=== PATIENT | male | born 1980 | race Caucasian/White ===

== ENCOUNTER → 2023-03-25 09:36 | Outpatient (CLI) | payer BC, SELFPAY ==
[2023-03-25 11:09] LABS: Add Manual Diff / Slide Review NO; Basophils Absolute Auto 0 /uL (0-100); Basophils Percent Auto 0.3 % (0-2); Eosinophils Absolute Auto 100 /uL (0-450); Eosinophils Percent Auto 1.3 % (2-4); Hematocrit 46.1 % (41-53); Hemoglobin 15.8 g/dL (13.5-17.5); Lymphocytes Absolute Auto 2800 /uL (1100-4500); Lymphocytes Percent Auto 42.3 % (25-40); Mean Corpuscular HGB Conc 34.3 % (30-36); Mean Corpuscular Hemoglobin 32.3 PG (26-34); Mean Corpuscular Volume 94.2 fL (80-100); Monocytes Absolute Auto 600 /uL (0-900); Monocytes Percent Auto 8.4 % (3-14); Neutrophils Absolute Auto 3200 /uL (1500-7000); Neutrophils Percent Auto 47.7 % (50-75); Platelet Count 239 X10^3/uL (150-400); Red Cell Distribution Width 13.2 % (11.6-14.8); White Blood Cell Count 6.7 X10^3/uL (4.5-11.0)
[2023-03-25 11:31] LABS: Alanine Aminotransferase 40 IU/L (<50); Albumin 4.1 g/dL (3.5-5.0); Albumin Globulin Ratio 1.6 (1.0-2.8); Alkaline Phosphatase 79 U/L (38-126); Aspartate Aminotransferase 35 IU/L (17-59); Bilirubin Total 0.3 mg/dL (0.2-1.3); Blood Urea Nitrogen 17 mg/dL (9-20); Calcium 8.8 mg/dL (8.4-10.2); Carbon Dioxide 29 mmol/L (22-32); Chloride 104 mmol/L (98-107); Cholesterol 203 mg/dL (140-199); Estimated Glomerular Filt Rate > 60 mL/min (>60); Globulin 2.6 g/dL (1.7-4.1); Glucose 94 mg/dL (70-100); HDL Cholesterol 47 mg/dL (40-60); HEMOLYSIS < 15 (0-50); LDL Cholesterol Calculated 138 mg/dL (<100); Potassium 4.4 mmol/L (3.4-5.1); Sodium 139 mmol/L (137-145); Total Protein 6.7 g/dL (6.3-8.2); Triglycerides 88 mg/dL (35-150)
[2023-03-25 11:56] LABS: TSH w/ Reflex to FT4 1.38 uIU/mL (0.47-4.68)
[2023-03-25 11:57] LABS: Prostate Specific Antigen 1.48 ng/mL (0.10-4.00)
== END ==
PROVIDERS: PCP Family Medicine; Referring Provider Family Medicine; Visit Provider Family Medicine
DX: E34.9 Endocrine disorder, unspecified (principal); F98.8 Other specified behavioral and emotional disorders with onset usually occurring in childhood and adolescence; R97.20 Elevated prostate specific antigen [PSA]; Z80.42 Family history of malignant neoplasm of prostate
CPT/HCPCS: 36415; 80053; 80061; 84153; 84443; 85025

== ENCOUNTER 2023-08-27 14:04 | Emergency (ER) | payer BC, SELFPAY ==
[2023-08-27 14:07] VITALS: BP 136/65; PULSE 88; RESP 14; TEMP 36.7; O2SAT 98; BMI 25.1
--- NOTE | 2023-08-27 14:24 | ED.GENADULT ---
HPI - General Adult General Chief complaint: Abdominal Pain Stated complaint: hernia getting worse Time Seen by Provider: 08/27/23 14:05 Source: patient Mode of arrival: Ambulatory History of Present Illness HPI narrative: Patient is a 42-year-old male. Over the past several weeks/months he has had issues with discomfort in his left groin. He states it initially was only uncomfortable when he was doing exercises such as squats. He talked with his primary doctor. There was some question about a hernia but he has never been specifically evaluated for this. He states his symptoms actually resolved when he quit doing the exercises that were causing the discomfort. He comes to the emergency department today because he is having the discomfort once again. He did state that a couple days ago he was involved in some physical activity and playing some sports. He occasionally feels like he is problems emptying his bladder. Describes the discomfort is on his inner thigh and a tugging sensation behind his left testicle. No abdominal pain. He did have a vasectomy several years ago. No other abdominal surgeries. Related Data Previous Rx's Medication Instructions Recorded tamsulosin 0.4 mg capsule 0.4 mg PO BEDTIME #90 caps 06/27/23 dextroamphetamine-amphetamine 5 mg 5 mg PO DAILY #30 tabs 08/21/23 tablet (Adderall) dextroamphetamine-amphetamine ER 10 mg PO DAILY #30 caps 08/21/23 10 mg 24hr capsule,extend release (Adderall XR) Allergies Allergy/AdvReac Type Severity Reaction Status Date / Time No Known Drug Allergies Allergy Verified 08/27/23 14:07 Review of Systems Constitutional Constitutional: Reports system reviewed and no additional complaints, except as documented Gastrointestinal Gastrointestinal: Reports system reviewed and no additional complaints, except as documented Genitourinary Genitourinary: Reports system reviewed and no additional complaints, except as documented Integumentary/Breasts Skin/Breast: Reports system reviewed and no additional complaints, except as documented Patient History Medical History Left inguinal hernia Hyperlipidemia Plantar wart of right foot Testosterone deficiency (~2021) Elevated PSA (~2021) Family history of prostate cancer ADD (attention deficit disorder) Surgical History Anesthesia History of shoulder surgery (~2006) Family History Father Prostate cancer Grandfather Cancer History of heart disease Social History Smoking Status: Never smoker Smoking Status: Never smoker alcohol intake frequency: 0-2 drinks per day Substance Use Type: does not use Exam Initial Vital Signs Initial Vital Signs: Vital Signs Temperature 98.0 F 08/27/23 14:07 Pulse Rate 88 08/27/23 14:07 Respiratory Rate 14 08/27/23 14:07 Blood Pressure 136/65 08/27/23 14:07 Pulse Oximetry 98 08/27/23 14:07 Oxygen Delivery Method Room Air 08/27/23 14:07 Const General: cooperative, comfortable and No ill appearing HENMT Head: normal to inspection and normocephalic GI Inspection: normal to inspection and non-distended Palpation: soft, No firm, No guarding and No tender External: normal external exam, circumcised, no erythema, no hernia, no inguinal lymphadenopathy and no lesions Penis: normal penis Scrotum: scrotum normal Testes: normal, testicular lie normal, epididymides normal, not enlarged, no epidiymal masses, no masses and no testicular tenderness Skin General: no rashes or lesions noted Neuro General: patient alert, patient awake and moves all extremities Extrem General: capillary refill normal Course Orders Ordered: ED Orders 08/27/23 14:55 US scrotum Stat Vital Signs Vital signs: Vital Signs - 8 hr 08/27/23 14:07 Temperature 98.0 F Pulse Rate 88 Respiratory Rate 14 Blood Pressure 136/65 Pulse Oximetry 98 Oxygen Delivery Method Room Air Medical Decision Making Lab Data Lab results reviewed: Yes I reviewed the patient's lab results. Labs: Urine Dip Bedside Urine Glucose Negative Bedside Urine Bilirubin - Negative Bedside Urine Ketone - Negative Urine Specific [place] 1.010 Bedside Urine Occult Blood - Negative Bedside Urine pH 6.0 Bedside Urine Protein - Negative Bedside Urine Urobilinogen - Negative Bedside Urine Nitrite - Negative Bedside Urine Leukocytes - Negative Esterase Point of care testing: Urine Dip Bedside Urine Glucose Negative Bedside Urine Bilirubin - Negative Bedside Urine Ketone - Negative Urine Specific [place] 1.010 Bedside Urine Occult Blood - Negative Bedside Urine pH 6.0 Bedside Urine Protein - Negative Bedside Urine Urobilinogen - Negative Bedside Urine Nitrite - Negative Bedside Urine Leukocytes - Negative Esterase Imaging Data Testicular ultrasound: Radiologist's Impression: PROCEDURE: US SCROTUM INDICATIONS: LEFT TESTICULAR PAIN TECHNIQUE: Real-time scanning was performed of the scrotum and testicles, with image documentation. Color and pulse Doppler interrogation was performed of both testicles. COMPARISON: None. FINDINGS: Right: Testicle is normal in size at 4 x 1.9 by 3 cm, and homogenous in echotexture. Epididymis is normal in overall size and morphology. No hydrocele or varicoceles. Overlying scrotal skin is normal in thickness. Left: Testicle is normal in size at 4.3 x 1.8 by 2.5 cm cm, and homogeneous in echotexture. Epididymis is normal in overall size and morphology. No hydrocele or varicoceles. Overlying scrotal skin is normal in thickness. Doppler: Color and pulse Doppler demonstrate normal and symmetric arterial flow in both testicles. IMPRESSION: Normal testicular ultrasound. [facility] Narrative Medical decision making narrative: His exam is very benign. I am unable to reproduce any specific tenderness. Urinalysis is unremarkable. He has not retaining urine. Testicular ultrasound shows no acute pathology. I do not feel a defined hernia neither indirect nor direct. He has no epididymal tenderness. I have a strong suspicion that his discomfort is actually a groin strain rather than a hernia. I discuss this with him. I will give him follow-up information for General surgery if his symptoms continue or if he were to start to have a bulge. He was given specific return precautions. He expressed understanding and agreement. Discharge Plan Departure Patient Disposition: Home Clinical Impression: Groin pain Instructions: DI for Groin Strain Activity Restrictions/Additional Instructions: Based on your workup here today I have a high suspicion that the discomfort is a groin strain and not a hernia. I did give you the follow-up information for General surgery if your symptoms do not improve or if you do start to feel a bulge in the groin area. Contact your primary doctor for a follow-up. Return to the emergency department for new symptoms. Prescriptions: No Action tamsulosin 0.4 mg capsule 0.4 mg PO BEDTIME Qty: 90 3RF dextroamphetamine-amphetamine [Adderall XR] 10 mg capsule,extended release 24hr 10 mg PO DAILY Qty: 30 0RF dextroamphetamine-amphetamine [Adderall] 5 mg tablet 5 mg PO DAILY Qty: 30 0RF Referrals: Dhruv Up MD [Physician] - Nickolas Mallory DO [Primary Care Provider] - Stand Alone Forms: Patient Portal/API
--- NOTE | 2023-08-27 14:50 | PC.NURSE ---
Pt reports noticing pain in his left groin area while doing weighted squats a few weeks ago. At rest patient denies pain but with walking rates pain 2/10, and doing ADL's around the house his pain increases to a 5/10. Previous history of vasectomy 3+ years ago. Pt concerned for hernia, no visual abnormalities.
--- NOTE | 2023-08-27 14:55 | DI.US.S_ITS ---
PROCEDURE: US SCROTUM INDICATIONS: LEFT TESTICULAR PAIN TECHNIQUE: Real-time scanning was performed of the scrotum and testicles, with image documentation. Color and pulse Doppler interrogation was performed of both testicles. COMPARISON: None. FINDINGS: Right: Testicle is normal in size at 4 x 1.9 by 3 cm, and homogenous in echotexture. Epididymis is normal in overall size and morphology. No hydrocele or varicoceles. Overlying scrotal skin is normal in thickness. Left: Testicle is normal in size at 4.3 x 1.8 by 2.5 cm cm, and homogeneous in echotexture. Epididymis is normal in overall size and morphology. No hydrocele or varicoceles. Overlying scrotal skin is normal in thickness. Doppler: Color and pulse Doppler demonstrate normal and symmetric arterial flow in both testicles. IMPRESSION: Normal testicular ultrasound. Dictated by: Yonatan Hernandez M.D. on 08/27/2023 at 15:11 Approved by: Yonatan Hernandez M.D. on 08/27/2023 at 15:12
[2023-08-27 16:32] VITALS: BP 125/78; PULSE 77; RESP 14; O2SAT 100
== END 2023-08-27 16:36 | disposition home or self-care (01) ==
PROVIDERS: Emergency Provider Emergency Medicine; PCP Family Medicine
DX: R10.30 Lower abdominal pain, unspecified (principal); N50.812 Left testicular pain
CPT/HCPCS: 51798; 76870; 81003; 93975; 99282; 99283

== ENCOUNTER → 2024-06-21 09:48 | Outpatient (CLI) | payer BC, SELFPAY ==
[2024-06-21 11:32] LABS: Alanine Aminotransferase 32 IU/L (<50); Albumin 4.6 g/dL (3.5-5.0); Albumin Globulin Ratio 1.8 (1.0-2.8); Alkaline Phosphatase 71 U/L (38-126); Aspartate Aminotransferase 30 IU/L (17-59); BUN Creatinine Ratio 18.7 (6-22); Blood Urea Nitrogen 23 mg/dL (9-20); Calcium 9.7 mg/dL (8.4-10.2); Carbon Dioxide 28 mmol/L (22-32); Chloride 101 mmol/L (98-107); Cholesterol 205 mg/dL (140-199); Estimated Glomerular Filt Rate > 60 mL/min (>60); Globulin 2.5 g/dL (1.7-4.1); Glucose 93 mg/dL (70-100); HDL Cholesterol 56 mg/dL (40-60); HEMOLYSIS < 15 (0-50); LDL Cholesterol Calculated 136 mg/dL (<100); Potassium 4.5 mmol/L (3.4-5.1); Sodium 137 mmol/L (137-145); Total Protein 7.1 g/dL (6.3-8.2); Triglycerides 66 mg/dL (35-150)
[2024-06-21 12:01] LABS: Prostate Specific Antigen 1.18 ng/mL (0.10-4.00)
== END ==
PROVIDERS: PCP Family Medicine; Referring Provider Family Medicine; Visit Provider Family Medicine
DX: E78.5 Hyperlipidemia, unspecified (principal); R97.20 Elevated prostate specific antigen [PSA]
CPT/HCPCS: 36415; 80053; 80061; 84153